=== PATIENT | female | born 1965 | race Caucasian/White ===

== ENCOUNTER → 2018-09-05 | Outpatient (CLI) | payer BC ==
--- NOTE | 2018-09-05 09:28 | BD ---
EXAMINATION TYPE: Axial Bone Density DATE OF EXAM: 09/05/2018 COMPARISON: NONE CLINICAL HISTORY: Height: 66 Weight: 148.3 FRAX RISK QUESTIONS: Alcohol (3 or more units per day): no Family History (Parent hip fracture): no Glucocorticoids (More than 3mos): no (Ex: prednisone, prednisolone, methylprednisolone, dexamethasone, and hydrocortisone). History of Fracture in Adulthood: no Secondary Osteoporosis: 1. Type 1 Diabetes: no 2. Hyperthyroidism: no 3. Menopause before 45: 4. Malnutrition: no 5. Chronic liver disease: no Rheumatoid Arthritis: no Current Tobacco Use: no RISK FACTORS HISTORY OF: Family History of Osteoporosis: no Active: yes Diet low in dairy products/other sources of calcium: yes Postmenopausal woman: at 50/ chemo induced Lost more than 2 inches in height since high school: no MEDICATIONS: tomaxifine Additional History: breast cancer 2 years ago EXAM MEASUREMENTS: Bone mineral densitometry was performed using the [employer] System. Bone mineral density as measured about the Lumbar spine is: ----- L1-L4(G/cm2): 1.042 T Score Values are as follows: ----- L2: -1.4 ----- L3: -1.4 ----- L4: -0.9 ----- L1-L4: -1.2 Bone mineral density BASELINE Bone mineral density about the R hip (g/cm2): 0.787 Bone mineral density about the L hip (g/cm2): 0.738 T Score values are as follows: -----R Neck: -1.8 -----L Neck: -2.2 -----R Total: -1.2 -----L Total: -1.6 Bone mineral density : BASELINE IMPRESSION: 1. Osteopenia. NOTE: T-SCORE=SD OF THE YOUNG ADULT MEAN.
== END | disposition home or self-care (01) ==
LOC: RADBDWWP 08:02
PROVIDERS: ATTEND Internal Medicine Hematology & Oncology
DX: M85.851 Other specified disorders of bone density and structure, right thigh (principal); M85.852 Other specified disorders of bone density and structure, left thigh; M85.88 Other specified disorders of bone density and structure, other site; C50.811 Malignant neoplasm of overlapping sites of right female breast; Z79.890 Hormone replacement therapy
CPT/HCPCS: 77080

== ENCOUNTER → 2020-05-25 | Outpatient (CLI) | payer BC | END | disposition home or self-care (01) | LOC: RADBDWWP 09:20 | PROVIDERS: ATTEND Internal Medicine Hematology & Oncology | DX: Z53.9 Procedure and treatment not carried out, unspecified reason (principal) ==

== ENCOUNTER → 2021-01-09 | Outpatient (CLI) | payer BC ==
--- NOTE | 2021-01-09 10:39 | BD ---
EXAMINATION TYPE: Axial Bone Density DATE OF EXAM: 01/09/2021 COMPARISON: 09/05/2018 CLINICAL HISTORY: 55-year-old female postmenopausal screening Height: 5 FT 5 IN Weight: 148 FRAX RISK QUESTIONS: Alcohol (3 or more units per day): NO Family History (Parent hip fracture): NO Glucocorticoids (More than 3mos): NO (Ex: prednisone, prednisolone, methylprednisolone, dexamethasone, and hydrocortisone). History of Fracture in Adulthood: NO Secondary Osteoporosis: 1. Type 1 Diabetes: NO 2. Hyperthyroidism: NO 3. Menopause before 45: NO 4. Malnutrition: NO 5. Chronic liver disease: NO Rheumatoid Arthritis: NO Current Tobacco Use: NO RISK FACTORS HISTORY OF: Surgery to Spine/Hip(right/left)/Wrist (right/left): NO Family History of Osteoporosis: NO Active: YES Diet low in dairy products/other sources of calcium: NO Postmenopausal woman: CHEMO INDUCED AGE 50 Take estrogen and/or progesterone medications: NO Lost more than 2 inches in height since high school: NO MEDICATIONS: Additional Medications: ARIMIDEX Additional History: BREAST CANCER AGE 50 BILATERAL MASTECTOMY CHEMO AND RADIATION EXAM MEASUREMENTS: Bone mineral densitometry was performed using the [employer] System. Bone mineral density as measured about the Lumbar spine is: ----- L1-L4(G/cm2): 1.128 T Score Values are as follows: ----- L2: -0.7 ----- L3: -0.8 ----- L4: -0.3 ----- L1-L4: -0.4 Bone mineral density has: INCREASED 7.4 % since study of: 2017 Bone mineral density about the R hip (g/cm2): 0.765 Bone mineral density about the L hip (g/cm2): 0.718 T Score values are as follows: -----R Neck: -2.0 -----L Neck: -2.3 -----R Total: -1.2 -----L Total: -1.8 Bone mineral density has: DECREASED -0.8 % since study of: 2017 IMPRESSION: Osteopenia (T Score between -2.5 and -1). There is slightly increased risk of fracture and the patient may be considered for treatment. Re-Screen 2-5 years. NOTE: T-SCORE=SD OF THE YOUNG ADULT MEAN.
== END | disposition home or self-care (01) ==
LOC: RADBDWWP 08:14
PROVIDERS: ATTEND Internal Medicine Hematology & Oncology
DX: M85.89 Other specified disorders of bone density and structure, multiple sites (principal); Z78.0 Asymptomatic menopausal state
CPT/HCPCS: 77080

== ENCOUNTER → 2023-03-26 | Outpatient (CLI) | payer BC ==
--- NOTE | 2023-03-26 22:18 | BD ---
EXAMINATION TYPE: Axial Bone Density DATE OF EXAM: 03/26/2023 CLINICAL HISTORY: 57 years old Female. ICD-10 CODE: M85.9 DISORDER OF BONE DENSITY AND STRUCTURE, UN SPECIFIED Height: 64.5 Weight: 140.2 FRAX RISK QUESTIONS: Alcohol (3 or more units per day): no Family History (Parent hip fracture): no Glucocorticoids (More than 3mos): no History of Fracture in Adulthood: no Secondary Osteoporosis: 1. Type 1 Diabetes: no 2. Hyperthyroidism: no 3. Menopause before 45: no 4. Malnutrition: no 5. Chronic liver disease: no Rheumatoid Arthritis: no Current Tobacco Use: no RISK FACTORS HISTORY OF: Hip Fracture (Right/Left): no Spine Fracture: no History of Wrist Fracture: no Surgery to Spine/Hip(right/left)/Wrist (right/left): no Family History of Osteoporosis: no Active: yes Diet low in dairy products/other sources of calcium: yes Postmenopausal woman: yes Take estrogen and/or progesterone medications: Hormone thomas past 7 years Lost more than 2 inches in height since high school: no Frequent falls: no Poor Health: no Hyperparathyroidism: no Adrenal Insufficiency: no MEDICATIONS: Prednisone or other steroids: no Thyroid Medications: no Osteoporosis Medications:6 Infusions How Long: Past 3 years Additional Medications: Arimidex, Calcium, Additional History: Breast Ca. Age 50 with Radiation and Chemo EXAM MEASUREMENTS: Bone mineral densitometry was performed using the [employer] System. Bone mineral density as measured about the Lumbar spine is: ----- L1-L4(G/cm2): 1.118 T Score Values are as follows: ----- L1: -0.2 ----- L2: -0.9 ----- L3: -0.4 ----- L4: -0.7 ----- L1-L4: -0.5 Z Score Values are as follows: ----- L1: 0.8 ----- L2: 0.2 ----- L3: 0.7 ----- L4: 0.3 ----- L1-L4: 0.5 Bone mineral density has: decreased -0.9 % since study of: 01/09/2021 Bone mineral density about the R hip (g/cm2): 0.883 Bone mineral density about the L hip (g/cm2): 0.807 T Score values are as follows: -----R Neck: -1.7 -----L Neck: -2.2 -----R Total: -1.0 -----L Total: -1.6 Z Score values are as follows: -----R Neck: -0.6 -----L Neck: -1.1 -----R Total: -0.2 -----L Total: -0.8 Bone mineral density has: increased 3.0 % since study of: 01/09/2021 FRAX%s: The graph provided illustrates a 9.3 % chance for a major osteoporotic fx and a 1.4% chance f or the hips probability for fx in 10 years time. IMPRESSION: Osteopenia (T Score between -2.5 and -1). There is slightly increased risk of fracture and the patient may be considered for treatment. Re-Screen 2-5 years. NOTE: T-SCORE=SD OF THE YOUNG ADULT MEAN.
== END | disposition home or self-care (01) ==
LOC: RADBDWWP 15:06
PROVIDERS: ATTEND Internal Medicine Hematology & Oncology
DX: M85.89 Other specified disorders of bone density and structure, multiple sites (principal); C50.811 Malignant neoplasm of overlapping sites of right female breast; Z71.89 Other specified counseling
CPT/HCPCS: 77080

== ENCOUNTER → 2025-03-31 | Outpatient (CLI) | payer BC ==
--- NOTE | 2025-04-01 15:28 | BD ---
EXAMINATION TYPE: Axial Bone Density DATE OF EXAM: 03/31/2025 CLINICAL HISTORY: 59 years old Female. ICD-10 CODE: M81.0 AGE-RELATED OSTEOPOROSIS W/O CURRENT PATHO LOGY , Additional History: Height: 65 Weight: 140 FRAX RISK QUESTIONS: Family History (Parent hip fracture): no History of Fracture in Adulthood: no Secondary Osteoporosis: no RISK FACTORS HISTORY OF: Surgery to Spine/Hip(right/left)/Wrist (right/left): no MEDICATIONS: Thyroid Medications: no Osteoporosis Medications: no EXAM MEASUREMENTS: Bone mineral densitometry was performed using the [employer] System. Bone mineral density as measured about the Lumbar spine is: ----- L1-L4(G/cm2): 1.119 T Score Values are as follows: ----- L1: -0.2 ----- L2: -0.7 ----- L3: -0.7 ----- L4: -0.5 ----- L1-L4: -0.5 Z Score Values are as follows: ----- L1: 1.0 ----- L2: 0.5 ----- L3: 0.5 ----- L4: 0.7 ----- L1-L4: 0.7 Bone mineral density has: Increased 0.1% since study of: 03/26/2023 Bone mineral density about the R hip (g/cm2): 0.900 Bone mineral density about the L hip (g/cm2): 0.824 T Score values are as follows: -----R Neck: -1.7 -----L Neck: -2.5 -----R Total: -0.9 -----L Total: -1.5 Z Score values are as follows: -----R Neck: -0.5 -----L Neck: -1.2 -----R Total: 0.1 -----L Total: -0.5 Bone mineral density has: Increased 2.0% since study of: 03/26/2023 FRAX%s: The graph provided illustrates a 11.0% chance for a major osteoporotic fx and a 2.1% chance f or the hips probability for fx in 10 years time. IMPRESSION: Osteoporosis (T Score less than -2.5). There is increased fracture risk and therapy is usually indicated based on age. Re-Screen 1-2 years. NOTE: T-SCORE=SD OF THE YOUNG ADULT MEAN. [facility], , 04/01/2025 3:26 PM
== END | disposition home or self-care (01) ==
LOC: RADBDWWP 12:47
PROVIDERS: ATTEND Internal Medicine Hematology & Oncology
DX: M81.0 Age-related osteoporosis without current pathological fracture (principal); M85.9 Disorder of bone density and structure, unspecified; C50.811 Malignant neoplasm of overlapping sites of right female breast; Z71.89 Other specified counseling
CPT/HCPCS: 77080